=== PATIENT | male | born 1990 | race Caucasian/White ===

== ENCOUNTER 2020-07-08 11:09 | Outpatient (REF) | payer OTHER, SELFPAY ==
[2020-07-08 12:59] LABS: MANUAL DIFF FLAG NO
[2020-07-08 13:09] LABS: Basophils Percent Auto 0.6 % (0-2); Eosinophils Absolute Auto 0.1 X10*3/uL (0.0-0.4); Eosinophils Percent Auto 2.1 % (0-4); Hematocrit 47.4 % (42-52); Lymphocytes Absolute Auto 1.6 X10*3/uL (1.2-4.9); Lymphocytes Percent Auto 46.8 % (20-40); Mean Corpuscular HGB Conc 31.6 g/dl (31.0-36.0); Mean Corpuscular Hemoglobin 25.9 pg (27.0-33.0); Mean Corpuscular Volume 81.7 fL (80-98); Mean Platelet Volume 10.2 fL (9.4-12.4); Monocytes Absolute Auto 0.5 X10*3/uL (0.1-1.2); Monocytes Percent Auto 15.9 % (2-11); Neutrophils Absolute Auto 1.2 X10*3/uL (2.0-8.3); Neutrophils Percent Auto 34.6 % (45-73); Platelet Count 329 X10*3/uL (160-400); White Blood Count 3.3 X10*3/uL (4.8-10.8)
== END 2020-07-08 11:10 | disposition home or self-care (01) ==
LOC: HO.LABR 11:09
PROVIDERS: PCP Internal Medicine; Visit Provider Clinical Nurse Specialist Psychiatric/Mental Health, Adult
DX: F20.0 Paranoid schizophrenia (principal); D70.2 Other drug-induced agranulocytosis
CPT/HCPCS: 36415; 85025

== ENCOUNTER 2020-08-06 11:02 | Outpatient (REF) | payer OTHER, SELFPAY ==
[2020-08-06 12:08] LABS: MANUAL DIFF FLAG NO
[2020-08-06 12:10] LABS: Basophils Percent Auto 0.5 % (0-2); Eosinophils Absolute Auto 0.1 X10*3/uL (0.0-0.4); Eosinophils Percent Auto 2.5 % (0-4); Hematocrit 45.8 % (42-52); Hemoglobin 14.7 g/dl (14.0-18.0); Imm Gran Abs Auto 0.01 X10*3/uL (0.00-0.03); Imm Gran Pct Auto 0.3 % (0.0-0.4); Lymphocytes Absolute Auto 1.4 X10*3/uL (1.2-4.9); Lymphocytes Percent Auto 35.5 % (20-40); Mean Corpuscular HGB Conc 32.1 g/dl (31.0-36.0); Mean Corpuscular Hemoglobin 25.7 pg (27.0-33.0); Mean Corpuscular Volume 80.1 fL (80-98); Mean Platelet Volume 10.3 fL (9.4-12.4); Monocytes Absolute Auto 0.6 X10*3/uL (0.1-1.2); Neutrophils Absolute Auto 1.8 X10*3/uL (2.0-8.3); Neutrophils Percent Auto 45.2 % (45-73); Platelet Count 358 X10*3/uL (160-400); Red Blood Count 5.72 X10*6/uL (4.60-5.80); Red Cell Distribution Width 14.4 % (11.0-16.0)
== END 2020-08-06 11:03 | disposition home or self-care (01) ==
LOC: HO.LABR 11:02
PROVIDERS: PCP Internal Medicine; Visit Provider Clinical Nurse Specialist Psychiatric/Mental Health, Adult
DX: F31.5 Bipolar disorder, current episode depressed, severe, with psychotic features (principal)
CPT/HCPCS: 36415; 85025

== ENCOUNTER 2020-11-12 12:46 | Outpatient (REF) | payer OTHER, SELFPAY ==
[2020-11-12 14:05] LABS: MANUAL DIFF FLAG NO
[2020-11-12 14:10] LABS: Basophils Percent Auto 0.3 % (0-2); Eosinophils Absolute Auto 0.1 X10*3/uL (0.0-0.4); Eosinophils Percent Auto 1.3 % (0-4); Hematocrit 47.1 % (42-52); Hemoglobin 14.9 g/dl (14.0-18.0); Imm Gran Abs Auto 0.01 X10*3/uL (0.00-0.03); Imm Gran Pct Auto 0.3 % (0.0-0.4); Lymphocytes Absolute Auto 1.7 X10*3/uL (1.2-4.9); Lymphocytes Percent Auto 42.3 % (20-40); Mean Corpuscular HGB Conc 31.6 g/dl (31.0-36.0); Mean Corpuscular Hemoglobin 25.5 pg (27.0-33.0); Mean Corpuscular Volume 80.7 fL (80-98); Mean Platelet Volume 10.4 fL (9.4-12.4); Monocytes Absolute Auto 0.6 X10*3/uL (0.1-1.2); Monocytes Percent Auto 15.1 % (2-11); Neutrophils Absolute Auto 1.6 X10*3/uL (2.0-8.3); Neutrophils Percent Auto 40.7 % (45-73); Platelet Count 365 X10*3/uL (160-400); Red Blood Count 5.84 X10*6/uL (4.60-5.80); Red Cell Distribution Width 13.7 % (11.0-16.0); White Blood Count 3.9 X10*3/uL (4.8-10.8)
== END 2020-11-12 12:47 | disposition home or self-care (01) ==
LOC: HO.LABR 12:46
PROVIDERS: PCP Internal Medicine; Visit Provider Clinical Nurse Specialist Psychiatric/Mental Health, Adult
DX: F20.0 Paranoid schizophrenia (principal)
CPT/HCPCS: 36415; 85025

== ENCOUNTER 2021-04-08 12:21 | Outpatient (REF) | payer OTHER, SELFPAY | END 2021-04-08 12:22 | disposition home or self-care (01) | LOC: HO.LABR 12:21 | PROVIDERS: Visit Provider Clinical Nurse Specialist Psychiatric/Mental Health, Adult | DX: Z13.89 Encounter for screening for other disorder (principal) ==

== ENCOUNTER 2021-04-09 11:15 | Outpatient (REF) | payer OTHER, SELFPAY | END 2021-04-09 11:16 | disposition home or self-care (01) | LOC: HO.LABR 11:15 | PROVIDERS: Visit Provider Clinical Nurse Specialist Psychiatric/Mental Health, Adult | DX: F31.5 Bipolar disorder, current episode depressed, severe, with psychotic features (principal); F39 Unspecified mood [affective] disorder; F41.1 Generalized anxiety disorder | CPT/HCPCS: 36415; 80299 ==

== ENCOUNTER 2022-01-04 14:57 | Outpatient (REF) | payer OTHER, SELFPAY ==
--- NOTE | ~2022-01-04 | MR_ITS ---
EXAMINATION: MR BRAIN WITHOUT AND WITH CONTRAST CLINICAL INFORMATION: Temporal lobe epilepsy. COMPARISON: Head CT dated 04/28/2019. TECHNIQUE: Multiplanar, multisequence imaging of the brain was acquired on a 3 Carina magnet before and after the intravenous administration of 10 mL of Gadavist. Limited study with motion artifacts. FINDINGS: No diffusion abnormalities are identified to suggest an acute infarct. The ventricles are normal in size. No mass effect or midline shift is seen. No brain parenchymal signal abnormality is noted. No extra-axial fluid collections are seen. The brainstem and cerebellum are normal. There is no abnormal parenchymal or leptomeningeal enhancement. No focal cortical dysplasia or migrational abnormality is seen. The hippocampi are normal in appearance. The gradient refocused acquisition demonstrates no pathologic magnetic susceptibility artifact to indicate underlying acute or chronic blood products. The craniovertebral junction, marrow signal, and midline structures are normal. The orbits and pituitary axis appear normal. The major intracranial flow voids at the level of the [place] of [place] are preserved. The dural venous sinus flow voids are maintained. Trace fluid noted in the dependent left mastoid air cells. There are retention small cysts along the floor of the right maxillary antrum. MR/MR head/brain wo/w con IMPRESSION: Normal MRI of the brain. No epileptogenic focus identified. No hippocampal pathology.
--- NOTE | ~2022-01-04 | XR_ITS ---
EXAMINATION: XR PRE-MRI SCREENING CLINICAL INFORMATION: Pre-MRI screening. COMPARISON: CT chest dated 03/09/2020. TECHNIQUE: AP and lateral views of the calvarium. AP and lateral views of the chest and abdomen. FINDINGS: No radiopaque metallic foreign body. No airspace consolidation. No pleural effusion or pneumothorax. Unremarkable cardiomediastinal silhouette. Nonobstructive bowel gas pattern. No abnormal soft tissue calcification. No acute osseous abnormality. XR/XR pre mri screening IMPRESSION: No metallic foreign body.
== END 2022-01-04 14:58 | disposition home or self-care (01) ==
LOC: HO.MRI 14:57
PROVIDERS: Visit Provider Psychiatry & Neurology Neurology
DX: G40.209 Localization-related (focal) (partial) symptomatic epilepsy and epileptic syndromes with complex partial seizures, not intractable, without status epilepticus (principal)
CPT/HCPCS: 70553; A9585

== ENCOUNTER 2025-03-20 15:41 | Outpatient (AMB) | payer OTHER, SELFPAY ==
--- NOTE | 2025-03-20 16:12 | MHC.OFFVIS ---
Intake Visit Reasons: 6 mnts sz Allergies bee pollen (BEE STINGS) Allergy (Unknown, Unverified 05/08/20 15:54) ANGIOEDEMA Penicillins (PENICILLINS) Allergy (Unknown, Unverified 05/08/20 15:54) UNKNOWN risperidone (From RISPERDAL) Allergy (Unknown, Unverified 05/08/20 15:54) UNKNOWN HPI Comments Details: 34 y/o man with underlying h/o schizophrenia and probably seizure disorder. He was initially seen in 2026. He carried diagnosis of schizophrenia and had an episode of upper body convulsion while sitting on breakfast stable. He was living in a jail. No seizures noted. Mood was stable. [facility] Medical History (Updated 03/20/25 @ 16:14 by Matilde Lemons MD) Schizophrenia Leukocytopenia TLE (temporal lobe epilepsy) Obesity Seizure disorder Psychotic disorder Review of Systems Const Details: Constitutional:?No fever, chills, fatigue, weight loss, or night sweats. HEENT:?No headache, vision changes, hearing loss, nasal congestion, sore throat. Neurological:?No dizziness, syncope, seizures, numbness, tingling, weakness, tremors, memory loss. Psychiatric:?No anxiety, depression, mood swings, sleep disturbance, or hallucinations. Endocrine:?No heat/cold intolerance, polydipsia, polyuria, or hair/skin changes. Hematologic/Lymphatic:?No easy bruising, bleeding, or lymphadenopathy. Integumentary (Skin):?No rash, lesions, itching, or color changes. ? Physical Exam Neuro Other: Mental Status: Alert and oriented to person, place, and time. Normal attention. Cranial Nerves: CN II: Visual escobar full to confrontation, visual acuity intact. CN III, IV, : Pupils equal, round, reactive to light and accommodation. Extraocular movements are normal. CN V: Facial sensation is normal. CN VII: Facial movements symmetrical. CN VIII: Hearing intact to bedside conversation is normal. CN IX, X: Palate elevates symmetrically. CN XI: Shoulder shrug and head turn symmetrical. CN XII: Tongue midline without atrophy or fasciculations. Extrapyramidal: Full facial expressions and blinking. No rigidity. Movements are appropriate with no tremor or abnormality. Speech: Normal; no dysarthria or tremor. Assessment & Plan Assessment & Plan (1) Epilepsy: Comment: Routine EEG at office in May 2020: R temp [facility]ps Amb EEG at [facility] in 2018: b/l temp discharges Routine EEG at [facility] in Aug 2017: b/l sharp and slow wave, left more than right CT WO at [facility] in 2014: WNL MRI brain WO at [facility] in 2021: OK. Code(s): G40.909 - Epilepsy, unspecified, not intractable, without status epilepticus Category: Medical Qualifiers: Epilepsy type: partial idiopathic, localized onset Intractability: not intractable Status epilepticus: without status epilepticus Qualified Code(s): G40.009 - Localization-related (focal) (partial) idiopathic epilepsy and epileptic syndromes with seizures of localized onset, not intractable, without status epilepticus Plan Impression: Stable Epilepsy with underlying psychotic disorder. Rec: Oxcarbazepine 600mg bid Medications: New oxcarbazepine 600 mg PO BID 180 tabs 1RF Coding Level of Care Code Est Pt Level 4 (05744) Diagnoses Partial idiopathic epilepsy with seizures of localized onset, not intractable, without status epilepticus G40.009 Epilepsy type: partial idiopathic, localized onset Intractability: not intractable Status epilepticus: without status epilepticus
--- OUTSIDE RECORDS SUMMARY | 2025-03-20 16:17 | XMS_ITS | Clinical Summary ---
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 Social History Tobacco Use Types Packs/Day Years Used Date Smoking Tobacco: Never Assessed Sex and Gender Information Value Date Recorded Sex Assigned at Not on file Gender Identity Not on file Sexual Orientation Not on file Job Start Date Occupation Industry Not on file Not on file Not on file Last Filed Vital Signs Vital Sign Reading Time Taken Comments Blood Pressure 131/78 04/18/2024 3:54 PM EDT Pulse 69 04/18/2024 3:54 PM EDT Temperature 37 C (98.6 F) 04/18/2024 3:54 PM EDT Respiratory Rate - - Oxygen Saturation 97% 04/18/2024 3:54 PM EDT Inhaled Oxygen Concentration - - Weight 112.5 kg (248 lb) 04/18/2024 3:54 PM EDT Height 182.9 cm (6') 04/18/2024 3:54 PM EDT Body Mass Index 33.63 04/18/2024 3:54 PM EDT Plan of Treatment Health Maintenance Due Date Last Done Comments Hepatitis C Screening 1989 Pneumococcal Vaccine (1 of 2 - PCV) 11/16/1995 Depression Screening 2001 Preventative Health Evaluation 11/16/2007 COVID-19 Vaccine ( season) 2024 11/02/2021, 09/26/2020, 09/05/2020 Influenza Vaccine (#1) 2025 4, 07/08/2022, 05/29/2020, Additional history exists DTap / Tdap / Td (8 - Td or Tdap) 02/28/2027 02/28/2017, 2006, 02/03/1995, Additional history exists Hepatitis B Vaccines Completed 08/02/2003, 12/17/2002, 06/03/2000 RSV Ped < 20 months Aged Out No longe r eligible based on patient's age to complete this topic Care Teams Private Banker Relationship Specialty Start Date End Date Alton Cutler MD [address] [place] [id number] PCP - General Internal Medicine 09/15/23
--- OUTSIDE RECORDS SUMMARY | 2025-03-20 16:17 | XMS_ITS | Encounter Summary ---
Author Organization [facility] Address [address] [place] [address] Care Team Providers Care Conditioning Machine Operator Name Role Phone Ainsley Stewart MD Primary Care Provider [phone] Reason for Visit * Reason Onset Date Comments Faxed Order 03/15/2025 [facility] Encounter Details Date Type Department Care Team (Late Contact Info) Description 03/15/2025 Telephone Internal Medicine - [address] [phone] Alton Cutler MD [address] [place] [phone] Faxed Order ([facility] ) Social History Tobacco Use Types Packs/Day Years Used Date Smoking Tobacco: Every Day Smokeless Tobacco: Never Alcohol Use Standard Drinks/Week Comments No 0 (1 standard drink = 0.6 oz pur e alcohol) Sex and Gender Information Value Date Recorded Sex Assigned at Not on file Legal Sex Male 3:00 AM EST Gender Identity Not on file Sexual Orientation Not on file documented as of this encounter Progress Notes * Sulma Prieto - 03/15/2025 10:06 AM EDT Orders from [facility] placed in Alton Cutler MD bin. Please complete and fax back to [phone]. Thank you. documented in this encounter Plan of Treatment Upcoming Encounters Date Type Department Care Team (Late st Contact Info) Description 03/25/2025 5:30 PM EDT Evaluation [address] [place] [phone] Trery Corral, PT [address] [place] [address] 04/02/2025 11:00 AM EDT Office Visit Internal Medicine - [facility] [address] [place] [phone] Omega Yu, ELI [address] [place] [address] 05/17/2025 2:20 PM EDT Office Visit Gastroenterology [address] [phone] Heather Ramirez, ELI [address] [address] 06/11/2025 11:30 AM EDT Office Visit Orthopedic Surgery - [place] [address] [phone] Alexa Person PA [address] [place] [phone] 06/27/2025 3:00 PM EST Office Visit Pulmonolgy - [place] [address] [phone] Enmanuel Frausto MD [address] [address] 02/12/2026 3:45 PM EDT Office Visit [facility] Hematology Oncology [address] [place] [phone] Félix Noonan MD [address] [place] [phone] documented as of this encounter Visit Diagnoses Not on filedocumented in this encounter Care Teams Conditioning Machine Operator Relationship Specialty Start Date End Date Ainsley Stewart MD [address] [facility] [place] [phone] PCP - General Internal Medicine 03/18/25 documented as of this encounter
== END 2025-03-20 16:19 | disposition home or self-care (01) ==
LOC: HO.HSM 15:42
PROVIDERS: Visit Provider Psychiatry & Neurology Neurology
DX: G40.009 Localization-related (focal) (partial) idiopathic epilepsy and epileptic syndromes with seizures of localized onset, not intractable, without status epilepticus (principal)
CPT/HCPCS: 99214

== ENCOUNTER → 2025-03-20 15:41 | Outpatient (BNVA) | payer OTHER, SELFPAY | PROVIDERS: Visit Provider Psychiatry & Neurology Neurology | DX: G40.009 Localization-related (focal) (partial) idiopathic epilepsy and epileptic syndromes with seizures of localized onset, not intractable, without status epilepticus (principal) | CPT/HCPCS: 99212 ==